=== PATIENT | male | born 1990 | race Caucasian/White ===

== ENCOUNTER 2024-03-22 21:21 | Emergency (ER) | payer SELFPAY ==
[2024-03-22] MEDS ORDERED: Tetracaine 0.5% PF 4 ML BOT ONE (21:39)
[2024-03-22] MEDS ORDERED: Fluorescein Opthalmic Strip ONE (21:39)
== END 2024-03-22 22:03 | disposition home or self-care (01) ==
LOC: MADERS 21:21
DX: T15.12XA Foreign body in conjunctival sac, left eye, initial encounter (principal)
CPT/HCPCS: 99283